=== PATIENT | female | born 1995 | race Caucasian/White ===

== ENCOUNTER 2017-08-29 19:15 | Emergency (ER) | payer MEDICAID ==
--- NOTE | 2017-08-29 19:37 | EDPHY ---
H & P Time Seen by Provider: 08/29/17 19:30 HPI/ROS: CHIEF COMPLAINT: Dysuria HISTORY OF PRESENT ILLNESS: Patient is a 21-year-old female with who comes to the emergency department complaining of dysuria and gross hematuria this afternoon. She has not had a fever. No abdominal pain. No vomiting or diarrhea. She is menstruating. No flank or back pain,. REVIEW OF SYSTEMS: Constitutional: denies: chills, fever, recent illness, recent injury EENTM: denies: blurred vision, double vision, nose congestion Respiratory: denies: cough, shortness of breath Cardiac: denies: chest pain, irregular heart rate, lightheadedness, palpitations Gastrointestinal/Abdominal: denies: abdominal pain, diarrhea, nausea, vomiting, blood streaked stools Genitourinary: denies: dysuria, frequency, hematuria, pain Musculoskeletal: denies: joint pain, muscle pain Skin: denies: lesions, rash, jaundice, bruising Neurological: denies: headache, numbness, paresthesia, tingling, dizziness, weakness Hematologic/Lymphatic: denies: blood clots, easy bleeding, easy bruising Immunologic/allergic: denies: HIV/AIDS, transplant EXAM: GENERAL: Well-appearing, thin and in no acute distress. HEAD: Atraumatic, normocephalic. EYES: Pupils equal round and reactive to light, extraocular movements intact, sclera anicteric, conjunctiva are normal. ENT: TMs normal, nares patent, oropharynx clear without exudates. Moist mucous membranes. NECK: Normal range of motion, supple without lymphadenopathy or JVD. LUNGS: Breath sounds clear to auscultation bilaterally and equal. No wheezes rales or rhonchi. HEART: Regular rate and rhythm without murmurs, rubs or gallops. ABDOMEN: Soft, nontender, normoactive bowel sounds. No guarding, no rebound. No masses appreciated. BACK: No CVA tenderness, no spinal tenderness, step-offs or deformities EXTREMITIES: Normal range of motion, no pitting or edema. No clubbing or cyanosis. NEUROLOGICAL: Cranial nerves II through XII grossly intact. Normal speech, normal gait. 5/5 strength, normal movement in all extremities, normal sensation PSYCH: Normal mood, normal affect. SKIN: Several lesions from chronic picking Source: Patient Exam Limitations: No limitations - Medical/Surgical History Hx Asthma: No Hx Chronic Respiratory Disease: No Hx Diabetes: No Other PMH: IV drug abuser, Fibromyalgia, anxiety, neuropathy - Family History Significant Family History: No pertinent family hx - Social History Smoking Status: Current some day smoker Alcohol Use: Occasionally Drug Use: Marijuana, Other Constitutional: Initial Vital Signs Temperature (C) 36.6 C 08/29/17 19:39 Heart Rate 110 H 08/29/17 19:39 Respiratory Rate 18 08/29/17 19:39 Blood Pressure 147/94 H 08/29/17 19:39 O2 Sat (%) 95 08/29/17 19:39 O2 Delivery Mode Room Air Allergies/Adverse Reactions: No Known Allergies Allergy (Unverified 08/29/17 19:34) Home Medications: Medication Instructions Recorded Bismuth Subsalicylate 08/29/17 [Pepto-Bismol] Fluticasone Hfa 110 Mcg [Flovent 08/29/17 110 MCG Hfa MDI (*)] Ibuprofen 800 mg PO 08/29/17 LORazepam [Ativan] 08/29/17 Lidocaine [Lidoderm] 1 each TP 08/29/17 Methocarbamol [Robaxin 500 mg (*)] 1,000 mg PO QID 08/29/17 Nitrofurantoin Monohyd/M-Cryst 100 mg PO BID #20 cap 08/29/17 [Nitrofurantoin Victoria-Macrocrystal] Ondansetron Odt [Zofran Odt 4 mg 08/29/17 (*)] Pregabalin [Lyrica 75mg (*)] 08/29/17 Tizanidine HCl 08/29/17 hydrOXYzine HCL [Hydroxyzine HCl] 08/29/17 Medical Decision Making ED Course/Re-evaluation: The patient's urinalysis is positive. We discussed this as well as typical antibiotic regimens. She does not have any allergies. We also discussed her skin wounds. None of them appear infected. We discussed follow-up with Urology because she states she has multiple urine infections as well as kidney stones. Differential Diagnosis: Partial list of the Differential diagnosis considered include but were not limited to; urinary tract infection, pyelonephritis and although unlikely based on the history and physical exam, I also considered kidney stone, , ovarian cyst, torsion. I discussed these differential diagnoses and the plan with the patient as well as the usual and expected course. The patient understands that the diagnosis is provisional and that in medicine we are not always correct and that further workup is often warranted. Usual and customary warnings were given. All of the patient's questions were answered. The patient was instructed to return to the emergency department should the symptoms at all worsen or return, otherwise to followup with the physician as we discussed. - Data Points Laboratory Results: 08/29/17 19:15 Urine Color DARK YELLOW Urine Appearance CLOUDY Urine pH 5.5 (5.0-7.5) Ur Specific [place] >= 1.030 (1.002-1.030) Urine Protein 2+ H (NEGATIVE) Urine Ketones TRACE H (NEGATIVE) Urine Blood 3+ H (NEGATIVE) Urine Nitrate NEGATIVE (NEGATIVE) Urine Bilirubin NEGATIVE (NEGATIVE) Urine Urobilinogen 0.2 EU EU (0.2-1.0) Ur Leukocyte Esterase 2+ H (NEGATIVE) Urine RBC 50-182 /hpf H /hpf (0-3) Urine WBC >182 /hpf H /hpf (0-3) Ur Epithelial Cells 2+ /lpf H /lpf (NONE-1+) Urine Bacteria 4+ /hpf H /hpf (NONE SEEN) Urine Glucose NEGATIVE (NEGATIVE) Medications Given: Discontinued Medications Nitrofurantoin Macrocrystals (Macrobid) 100 mg PO EDNOW ONE PRN Reason: Protocol Stop: 08/29/17 20:23 Last Admin: 08/29/17 20:31 Dose: 100 mg Departure - Departure Disposition: Home, Routine, Self-Care Clinical Impression: Urinary tract infection Qualifiers: Urinary tract infection type: acute cystitis Hematuria presence: with hematuria Qualified Code(s): N30.01 - Acute cystitis with hematuria Condition: Fair Instructions: Urinary Tract Infection in Women (ED) Referrals: NONE *PRIMARY CARE P,. [Primary Care Provider] - As per Instructions Topher Baldwin MD [Medical Doctor] - As per Instructions Prescriptions: Nitrofurantoin Monohyd/M-Cryst [Nitrofurantoin Victoria-Macrocrystal] 100 mg PO BID #20 cap
[2017-08-29 19:41] VITALS: O2SAT 95
[2017-08-29 19:55] LABS: LEUKOCYTE ESTERASE,URINE 2+ (NEGATIVE); NITRITE,URINE NEGATIVE (NEGATIVE); PH,URINE 5.5 (5.0-7.5)
[2017-08-29 20:09] LABS: COLOR DARK YELLOW
[2017-08-29 20:11] LABS: RBC,URINE 50-182 /hpf (0-3); WBC,URINE >182 /hpf (0-3)
[2017-08-29 20:13] LABS: BACTERIA 4+ /hpf (NONE SEEN)
[2017-08-29] MEDS ORDERED: NITROFURANTOIN MACROBID 100 MG CAP PO ONE (20:22)
[2017-08-29 20:48] VITALS: BP 138/76; PULSE 102; RESP 16; TEMP 97.3
== END 2017-08-29 20:48 | disposition home or self-care (01) ==
LOC: CED 19:15
DX: N30.01 Acute cystitis with hematuria (principal); F17.200 Nicotine dependence, unspecified, uncomplicated; B96.89 Other specified bacterial agents as the cause of diseases classified elsewhere
CPT/HCPCS: 81003-PO; 81015-PO

== ENCOUNTER → 2017-10-14 | Emergency (ER) | payer MEDICAID ==
[2017-10-14 16:33] VITALS: BP 135/85; PULSE 99; RESP 16; TEMP 98.2; O2SAT 97
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
== END | disposition home or self-care (01) ==
LOC: EEVIPCON 16:28
DX: T74.21XA Adult sexual abuse, confirmed, initial encounter (principal); F17.200 Nicotine dependence, unspecified, uncomplicated